=== PATIENT | female | born 1985 ===

== ENCOUNTER 2017-01-18 12:39 | Observation (INO) | payer OTHER, MEDICAID ==
[2017-01-18] MEDS ORDERED: Sodium Chloride 0.9% 1,000 ML IV STA (13:46)
--- NOTE | 2017-01-18 14:21 | ED PDOC ---
HPI: General Adult Time Seen by Provider: 01/18/17 13:21 Chief Complaint (Nursing): Abdominal Pain Chief Complaint (Provider): abdominal pain History Per: Patient History/Exam Limitations: no limitations Additional Complaint(s): 31yo female comes to the ED complaining of abdominal pain, nausea, back pain ongoing since the weekend (2-3 days). She saw her PMD over the weekend & was told she had a UTI. She was given Flagyl and Cipro 500. Initially urine was cloudy but now it has normalized. Currently has mid abdominal pain radiating to the back with nausea and fever. Past Medical History Reviewed: Historical Data, Nursing Documentation, Vital Signs Vital Signs: Last Vital Signs Temp 97.9 F 01/18/17 18:51 Pulse 77 01/18/17 18:51 Resp 18 01/18/17 18:51 BP 132/71 01/18/17 18:51 Pulse Ox 98 01/18/17 18:51 - Medical History PMH: No Chronic Diseases - Surgical History Surgical History: Appendectomy - Family History Family History: States: Unknown Family Hx - Social History Drugs: Denies - Home Medications Home Medications: Ambulatory Orders Medication Instructions Recorded Naproxen [Naprosyn] 500 mg PO Q12H #20 tab 10/25/14 - Allergies Allergies/Adverse Reactions: Allergies Allergy/AdvReac Type Severity Reaction Status Date / Time No Known Allergies Allergy Verified 10/22/14 12:20 Review of Systems ROS Statement: Except As Marked, All Systems Reviewed And Found Negative Constitutional: Positive for: Fever Gastrointestinal: Positive for: Nausea, Vomiting, Abdominal Pain. Negative for : Diarrhea Genitourinary Female: Positive for: Dysuria Physical Exam - Reviewed Nursing Documentation Reviewed: Yes Vital Signs Reviewed: Yes - Physical Exam Appears: Positive for: Well, Non-toxic, No Acute Distress Head Exam: Positive for: ATRAUMATIC, NORMAL INSPECTION, NORMOCEPHALIC Skin: Positive for: Warm, Dry Eye Exam: Positive for: EOMI, PERRL ENT: Positive for: Normal ENT Inspection Cardiovascular/Chest: Positive for: Regular Rate, Rhythm Respiratory: Positive for: Normal Breath Sounds. Negative for: Rales, Rhonchi, Wheezing Gastrointestinal/Abdominal: Positive for: Soft, Tenderness (mild mid abdominal, suprapubic). Negative for: Guarding, Rebound Back: Negative for: L CVA Tenderness, R CVA Tenderness Extremity: Positive for: Normal ROM - Laboratory Results Result Diagrams: 01/18/17 14:00 01/18/17 14:00 - ECG O2 Sat by Pulse Oximetry: 100 (RA) Pulse Ox Interpretation: Normal Medical Decision Making Medical Decision Makin Found to be febrile in the ED. Sepsis workup initiated for discovery of source. Tylenol, IV fluids initiated. 1400: CXR impression: suspect mild left basilar atelectasis. Labs reviewed. lactate 1.0 WBC 11.9 UA +TR leuk LFT mild elev AST Preg normal CT abd pelv obtained: Accession No. : [id number] Patient Name / ID : XESTER HAYDEN / [id number] Exam Date : 01/18/2017 18:15:25 ( Approved ) Study Comment : Sex / Age : F / 31Y Creator : Lei Murillo Dictator : Lei Murillo Fine Arts Chair : Founder And Chief Technical Officer : Lei Murillo Approver2 : Report Date : 01/18/2017 18:57:55 My Comment : This report is currently processing and HAS NOT BEEN OFFICIALLY SIGNED BY THE PHYSICIAN - ESTIMATED TIME OF APPROVAL IS 01/18/2017 19:03. PROCEDURE: CT Abdomen and Pelvis with contrast HISTORY: abdominal pain fever hx appendectomy COMPARISON: Comparison is made to the previous ultrasound of the abdomen dated 12/18/2013 and ultrasound of the pelvis dated 10/22/2014 TECHNIQUE: Contrast dose: He 90 mL Omnipaque 300. Axial and reformatted coronal and sagittal CT images of the abdomen were obtained after IV and oral contrast administration. Radiation dose: Total exam DLP = 709.08 mGy-cm. This CT exam was performed using one or more of the following dose reduction techniques: Automated exposure control, adjustment of the mA and/or kV according to patient size, and/or use of iterative reconstruction technique. FINDINGS: LOWER THORAX: Unremarkable. LIVER: Unremarkable. No gross lesion or ductal dilatation. GALLBLADDER AND BILE DUCTS: Distended gallbladder without CT evidence of acute cholecystitis. PANCREAS: Unremarkable. No gross lesion or ductal dilatation. SPLEEN: Unremarkable. ADRENALS: Unremarkable. No mass. KIDNEYS AND URETERS: Focal heterogeneous decreased enhancement seen at the left kidney upper pole may represent pyelonephritis. There is 5 millimeter nonobstructing calculus at the upper pole of the left kidney. No evidence of hydronephrosis. VASCULATURE: Unremarkable. No aortic aneurysm. BOWEL: Unremarkable. No obstruction. No gross mural thickening. APPENDIX: The appendix is not visualized consistent with the patient's history of prior appendectomy. PERITONEUM: Unremarkable. No free fluid. No free air. LYMPH NODES: Unremarkable. No enlarged lymph nodes. BLADDER: The urinary bladder is not distended therefore cannot be evaluated P REPRODUCTIVE: Uterus is slightly prominent in size. IUD is seen in place. Trace fluid seen in the pelvis. BONES: No acute fracture. OTHER FINDINGS: None. IMPRESSION: Ocal decreased enhancement of the renal cortex seen at the upper pole of the left kidney suspicious for pyelonephritis. Please correlate clinically. 5 millimeter nonobstructing calculus at the upper pole of the left kidney. No evidence of hydronephrosis. Distended gallbladder without evidence of cholecystitis. Given patient already on PO cipro and spiking fevers through oral cipro as outpatient, hospitalize Obs for IV Abx and cultures. Hospitalist paged for admission. ED OBSERVATION Date of observation admission: 01/18/17 Time of observation admission: 14:57 - Observation admission statement Patient is being placed in observation because:: sepsis workup - Goals of Observation Goals of observation are:: discovery of source of infection, IVF - Progress Note Progress Note: 01/18/17 14:50 resting comfortably 01/18/17 16:35 vitals remain stable. Pending CT abd pelv w oral and IV contrast r/o pyelonephritis vs cholecystitis (less likely w unremarkable LFTs and UA findings ) 01/18/17 19:01 CT results reviewed, pt to be admitted. Disposition - Clinical Impression Clinical Impression: Pyelonephritis - Patient ED Disposition Is Patient to be Admitted: Yes Counseled Patient/Family Regarding: Studies Performed, Diagnosis, Need For Followup - Disposition Disposition: Routine/Home Disposition Time: 14:57 Condition: STABLE - Pt Status Changed To: Hospital Disposition Of: Observation - POA Present On Arrival: None Additional Comments - Additional Comments Additional Comments: Scribe Attestation: Documented by Jorge L Cavazos acting as a scribe for Santhosh Connor DO. Provider Scribe Attestation: All medical record entries made by the Scribe were at my direction and personally dictated by me. I have reviewed the chart and agree that the record accurately reflects my personal performance of the history, physical exam, medical decision making, and the department course for this patient. I have also personally directed, reviewed, and agree with the discharge instructions and disposition.
[2017-01-18 14:22] LABS: VENOUS BLOOD GAS BASE EXCESS 2.7 mmol/L (0.0-2.0); VENOUS BLOOD GAS PCO2 36 mmHg (40-60); VENOUS BLOOD PH 7.47 (7.32-7.43)
[2017-01-18 14:27] LABS: BASO % 0.4 % (0.0-2.0); HEMATOCRIT 34.7 % (34.0-47.0); LYMPH # 1.3 K/uL (1.0-4.3); LYMPH % 10.5 % (20.0-40.0); MEAN CELL VOLUME 82.1 fl (81.0-99.0); MEAN CORPUSCULAR HEMOGLOBIN 27.1 pg (27.0-31.0); MEAN PLATELET VOLUME 10.6 fl (7.2-11.7); MONO # 1.1 K/uL (0.0-0.8); MONO % 9.6 % (0.0-10.0); NEUT # 9.4 K/uL (1.8-7.0); NEUT % 79.5 % (50.0-75.0); RED CELL DISTRIBUTION WIDTH 17.5 % (11.5-14.5); WHITE BLOOD COUNT 11.9 K/uL (4.8-10.8)
--- NOTE | 2017-01-18 14:28 | RAD ---
HISTORY: fever COMPARISON: No prior. FINDINGS: LUNGS: Suspect minor left basilar atelectasis PLEURA: No significant pleural effusion identified, no pneumothorax apparent. CARDIOVASCULAR: Normal. OSSEOUS STRUCTURES: No significant abnormalities. VISUALIZED UPPER ABDOMEN: Normal. OTHER FINDINGS: None. IMPRESSION: Suspect minor left basilar atelectasis
[2017-01-18 14:41] LABS: ALKALINE PHOSPHATASE 67 U/L (38-126); ALT/SGPT 38 U/L (9-52); AST/SGOT 42 U/L (14-36); BILIRUBIN,TOTAL 0.5 mg/dl (0.2-1.3); BLOOD UREA NITROGEN 9 mg/dl (7-17); CALCIUM 8.5 mg/dL (8.4-10.2); CARBON DIOXIDE 24 mmol/L (22-30); CHLORIDE 102 mmol/L (98-107); GFR AFRICAN-AMERICAN > 60; GLUCOSE,RANDOM 91 mg/dL (65-105); POTASSIUM 3.6 MMOL/L (3.6-5.0); SODIUM 137 mmol/l (132-148); TOTAL PROTEIN 7.5 G/DL (6.3-8.2)
[2017-01-18] MEDS ORDERED: Iohexol 240 (50 ml) PO ONE (14:45)
[2017-01-18 14:47] LABS: PARTIAL THROMBOPLASTIN TIME 29.2 SECONDS (23.3-32.5)
[2017-01-18 15:10] LABS: RBC URINE 20 /hpf (0-3); URINE BACTERIA RARE (<OCC); URINE BILIRUBIN NEGATIVE (NEGATIVE); URINE BLOOD SMALL (NEGATIVE); URINE COLOR YELLOW (YELLOW); URINE GLUCOSE (UA) NEG (Normal); URINE KETONE 80 mg/dL (NEGATIVE); URINE LEUKOCYTE ESTERASE TRACE Leu/uL (Negative); URINE PROTEIN 30 mg/dL (NEGATIVE); URINE UROBILINOGEN 0.2-1.0 mg/dL (0.2-1.0); WBC URINE 4 /hpf (0-5)
[2017-01-18] MEDS ORDERED: Iohexol 240 (50 ml) ONE (15:17)
[2017-01-18] MEDS ORDERED: Sodium Chloride 0.9% 50 ML IV ONE (18:06)
[2017-01-18] MEDS ORDERED: Iohexol 300 100 ML IJ ONE (18:06)
--- NOTE | 2017-01-18 18:59 | CT ---
PROCEDURE: CT Abdomen and Pelvis with contrast HISTORY: abdominal pain fever hx appendectomy COMPARISON: Comparison is made to the previous ultrasound of the abdomen dated 12/18/2013 and ultrasound of the pelvis dated 10/22/2014 TECHNIQUE: Contrast dose: He 90 mL Omnipaque 300. Axial and reformatted coronal and sagittal CT images of the abdomen were obtained after IV and oral contrast administration. Radiation dose: Total exam DLP = 709.08 mGy-cm. This CT exam was performed using one or more of the following dose reduction techniques: Automated exposure control, adjustment of the mA and/or kV according to patient size, and/or use of iterative reconstruction technique. FINDINGS: LOWER THORAX: Unremarkable. LIVER: Unremarkable. No gross lesion or ductal dilatation. GALLBLADDER AND BILE DUCTS: Distended gallbladder without CT evidence of acute cholecystitis. PANCREAS: Unremarkable. No gross lesion or ductal dilatation. SPLEEN: Unremarkable. ADRENALS: Unremarkable. No mass. KIDNEYS AND URETERS: Focal heterogeneous decreased enhancement seen at the left kidney upper pole may represent pyelonephritis. There is 5 millimeter nonobstructing calculus at the upper pole of the left kidney. No evidence of hydronephrosis. VASCULATURE: Unremarkable. No aortic aneurysm. BOWEL: Unremarkable. No obstruction. No gross mural thickening. APPENDIX: The appendix is not visualized consistent with the patient's history of prior appendectomy. PERITONEUM: Unremarkable. No free fluid. No free air. LYMPH NODES: Unremarkable. No enlarged lymph nodes. BLADDER: The urinary bladder is not distended therefore cannot be evaluated P REPRODUCTIVE: Uterus is slightly prominent in size. IUD is seen in place. Trace fluid seen in the pelvis. BONES: No acute fracture. OTHER FINDINGS: None. IMPRESSION: Ocal decreased enhancement of the renal cortex seen at the upper pole of the left kidney suspicious for pyelonephritis. Please correlate clinically. 5 millimeter nonobstructing calculus at the upper pole of the left kidney. No evidence of hydronephrosis. Distended gallbladder without evidence of cholecystitis.
[2017-01-18] MEDS ORDERED: Sodium Chloride 0.9% 1,000 ML IV SCH (19:45)
--- NOTE | 2017-01-18 19:50 | CP.PCM.HP ---
History of Present Illness - History of Present Illness History of Present Illness: 31 yo female with no significant PMH came in complaining of abdominal pain, back pain and fever since 2 days ago. Saw a physician who diagnosed her with UTI and was given Cipro and Flagyl. After 2 days of the antibiotics her condition has not improved so she decided to seek emergency consultation. Present on Admission - Present on Admission Any Indicators Present on Admission: No History of DVT/PE: No History of Uncontrolled Diabetes: No Urinary Catheter: No Decubitus Ulcer Present: No Review of Systems - Review of Systems All systems: reviewed and no additional remarkable complaints except (aside from those mentioned above, 12 point system review were negative by me) Past Patient History - Past Social History Smoking Status: Never Smoked Chewing Tobacco Use: No Cigar Use: No Alcohol: None Drugs: Denies - PSYCHIATRIC Hx Substance Use: No - SURGICAL HISTORY Hx Appendectomy: Yes - ANESTHESIA Hx Anesthesia: Yes Hx Anesthesia Reactions: No Meds Allergies/Adverse Reactions: Allergies Allergy/AdvReac Type Severity Reaction Status Date / Time No Known Allergies Allergy Verified 10/22/14 12:20 Physical Exam - Constitutional Appears: No Acute Distress - Head Exam Head Exam: NORMAL INSPECTION - Eye Exam Eye Exam: absent: Scleral icterus - ENT Exam ENT Exam: Mucous Membranes Moist - Neck Exam Neck exam: Negative for: Meningismus - Respiratory Exam Respiratory Exam: Clear to Auscultation Bilateral, NORMAL BREATHING PATTERN - Cardiovascular Exam Cardiovascular Exam: REGULAR RHYTHM, +S1, +S2 - GI/Abdominal Exam GI & Abdominal Exam: Soft, Tenderness (tenderness on RUQ) - Rectal Exam Rectal Exam: Deferred - Extremities Exam Extremities exam: Negative for: calf tenderness, pedal edema - Back Exam Back exam: absent: tenderness - Neurological Exam Neurological exam: Alert, Oriented x3 - Psychiatric Exam Psychiatric exam: Normal Affect - Skin Skin Exam: Dry, Intact Results - Vital Signs Recent Vital Signs: Last Vital Signs Temp 97.9 F 01/18/17 18:51 Pulse 77 01/18/17 18:51 Resp 18 01/18/17 18:51 BP 132/71 01/18/17 18:51 Pulse Ox 100 01/18/17 19:05 - Labs Result Diagrams: 01/18/17 14:00 01/18/17 14:00 Assessment & Plan (1) Pyelonephritis Status: Acute Comment: place on observation in med/surg. blood culture and urine culture. IV hydration NSS 100cc/hr. Rocephin 1gm IV daily
[2017-01-18] MEDS ORDERED: cefTRIAXone (Rocephin) 1 gm Inj ONE (19:56)
[2017-01-18 23:32] VITALS: RESP 18
[2017-01-19 07:00] LABS: BASO # 0.1 K/uL (0.0-0.2); BASO % 0.6 % (0.0-2.0); EOS # 0.2 K/uL (0.0-0.7); EOS % 1.9 % (0.0-4.0); HEMATOCRIT 31.3 % (34.0-47.0); LYMPH # 2.2 K/uL (1.0-4.3); LYMPH % 22.9 % (20.0-40.0); MEAN CELL VOLUME 82.2 fl (81.0-99.0); MEAN CORPUSCULAR HEMOGLOBIN 27.3 pg (27.0-31.0); MEAN CORPUSCULAR HGB CONC 33.2 g/dL (33.0-37.0); MEAN PLATELET VOLUME 10.3 fl (7.2-11.7); MONO # 1.4 K/uL (0.0-0.8); MONO % 14.9 % (0.0-10.0); NEUT # 5.7 K/uL (1.8-7.0); NEUT % 59.7 % (50.0-75.0); RED CELL DISTRIBUTION WIDTH 17.3 % (11.5-14.5); WHITE BLOOD COUNT 9.6 K/uL (4.8-10.8)
[2017-01-19 07:20] LABS: BLOOD UREA NITROGEN 8 mg/dl (7-17); CALCIUM 7.7 mg/dL (8.4-10.2); CARBON DIOXIDE 24 mmol/L (22-30); CHLORIDE 104 mmol/L (98-107); GFR AFRICAN-AMERICAN > 60; GLUCOSE,RANDOM 89 mg/dL (65-105); POTASSIUM 3.8 MMOL/L (3.6-5.0); SODIUM 136 mmol/l (132-148)
[2017-01-19 08:34] VITALS: BP 95/61; PULSE 68; TEMP 98.2; O2SAT 97
[2017-01-19] MEDS ORDERED: Enoxaparin 40 mg Syringe SC SCH (09:00)
[2017-01-19] MEDS ORDERED: Pantoprazole 40 mg EC Tab PO SCH (09:00)
--- NOTE | 2017-01-19 13:48 | CP.PCM.DIS ---
Provider - Provider Date of Admission: 01/18/17 14:57 Attending physician: Blair Stover MD Time Spent in preparation of Discharge (in minutes): 30 Diagnosis - Discharge Diagnosis (1) Pyelonephritis Status: Acute Comment: felt better. received 2 doses of IV 1gm of Rocephin. Bactrim DS PO BID x 10 days. Bacid BID for 10 days Hospital Course - Lab Results Lab Results: Most Recent Lab Values WBC 9.6 K/uL (4.8-10.8) 01/19/17 06:30 RBC 3.81 Mil/uL (3.80-5.20) 01/19/17 06:30 Hgb 10.4 g/dL (12.0-16.0) L 01/19/17 06:30 Hct 31.3 % (34.0-47.0) L 01/19/17 06:30 MCV 82.2 fl (81.0-99.0) 01/19/17 06:30 MCH 27.3 pg (27.0-31.0) 01/19/17 06:30 MCHC 33.2 g/dL (33.0-37.0) 01/19/17 06:30 RDW 17.3 % (11.5-14.5) H 01/19/17 06:30 Plt Count 220 K/uL (130-400) 01/19/17 06:30 MPV 10.3 fl (7.2-11.7) 01/19/17 06:30 Neut % (Auto) 59.7 % (50.0-75.0) 01/19/17 06:30 Lymph % (Auto) 22.9 % (20.0-40.0) 01/19/17 06:30 [place] % (Auto) 14.9 % (0.0-10.0) H 01/19/17 06:30 Eos % (Auto) 1.9 % (0.0-4.0) 01/19/17 06:30 Baso % (Auto) 0.6 % (0.0-2.0) 01/19/17 06:30 Neut # 5.7 K/uL (1.8-7.0) 01/19/17 06:30 Lymph # 2.2 K/uL (1.0-4.3) 01/19/17 06:30 [place] # 1.4 K/uL (0.0-0.8) H 01/19/17 06:30 Eos # 0.2 K/uL (0.0-0.7) 01/19/17 06:30 Baso # 0.1 K/uL (0.0-0.2) 01/19/17 06:30 PT 11.4 SECONDS (9.6-11.2) H 01/18/17 14:00 INR 1.10 (0.92-1.08) H 01/18/17 14:00 APTT 29.2 SECONDS (23.3-32.5) 01/18/17 14:00 pO2 28 mm/Hg (30-55) L 01/18/17 14:19 VBG pH 7.47 (7.32-7.43) H 01/18/17 14:19 VBG pCO2 36 mmHg (40-60) L 01/18/17 14:19 VBG HCO3 26.0 mmol/L 01/18/17 14:19 VBG Total CO2 27.3 mmol/L (22-28) 01/18/17 14:19 VBG O2 Sat (Calc) 64.3 % (40-65) 01/18/17 14:19 VBG Base Excess 2.7 mmol/L (0.0-2.0) H 01/18/17 14:19 VBG Potassium 3.5 mmol/L (3.6-5.2) L 01/18/17 14:19 A-a O2 Difference 77.0 mm/Hg 01/18/17 14:19 Sodium 136.0 mmol/L (132-148) 01/18/17 14:19 Chloride 104.0 mmol/L (98-107) 01/18/17 14:19 Glucose 88 mg/dL (65-105) 01/18/17 14:19 Lactate 1.0 mmol/L (0.7-2.1) 01/18/17 14:19 FiO2 21.0 % 01/18/17 14:19 Crit Value Called To Dr blank wilkerson 01/18/17 14:19 Crit Value Called By 15 01/18/17 14:19 Crit Value Read Back Y 01/18/17 14:19 Blood Gas Notified Time 1422 01/18/17 14:19 Sodium 136 mmol/l (132-148) 01/19/17 06:30 Potassium 3.8 MMOL/L (3.6-5.0) 01/19/17 06:30 Chloride 104 mmol/L (98-107) 01/19/17 06:30 Carbon Dioxide 24 mmol/L (22-30) 01/19/17 06:30 Anion Gap 11 (10-20) 01/19/17 06:30 BUN 8 mg/dl (7-17) 01/19/17 06:30 Creatinine 0.6 mg/dL (0.7-1.2) L 01/19/17 06:30 Est GFR ( Amer) > 60 01/19/17 06:30 Est GFR (Non-Af Amer) > 60 01/19/17 06:30 Random Glucose 89 mg/dL (65-105) 01/19/17 06:30 Calcium 7.7 mg/dL (8.4-10.2) L 01/19/17 06:30 Total Bilirubin 0.5 mg/dl (0.2-1.3) 01/18/17 14:00 AST 42 U/L (14-36) H 01/18/17 14:00 ALT 38 U/L (9-52) 01/18/17 14:00 Alkaline Phosphatase 67 U/L (38-126) 01/18/17 14:00 Total Protein 7.5 G/DL (6.3-8.2) 01/18/17 14:00 Albumin 3.8 g/dL (3.5-5.0) 01/18/17 14:00 Globulin 3.7 gm/dL (2.2-3.9) 01/18/17 14:00 Albumin/Globulin Ratio 1.0 (1.0-2.1) 01/18/17 14:00 Venous Blood Potassium 3.5 mmol/L (3.6-5.2) L 01/18/17 14:19 Urine Color Yellow (YELLOW) 01/18/17 14:45 Urine Clarity Clear (Clear) 01/18/17 14:45 Urine pH 6.0 (5.0-8.0) 01/18/17 14:45 Ur Specific [place] 1.017 (1.003-1.030) 01/18/17 14:45 Urine Protein 30 mg/dL (NEGATIVE) 01/18/17 14:45 Urine Glucose (UA) Neg mg/dL (Normal) 01/18/17 14:45 Urine Ketones 80 mg/dL (NEGATIVE) 01/18/17 14:45 Urine Blood Small (NEGATIVE) 01/18/17 14:45 Urine Nitrate Negative (NEGATIVE) 01/18/17 14:45 Urine Bilirubin Negative (NEGATIVE) 01/18/17 14:45 Urine Urobilinogen 0.2-1.0 mg/dL (0.2-1.0) 01/18/17 14:45 Ur Leukocyte Esterase Trace [place]/uL (Negative) 01/18/17 14:45 Urine RBC (Auto) 20 /hpf (0-3) H 01/18/17 14:45 Urine Microscopic WBC 4 /hpf (0-5) 01/18/17 14:45 Ur Squamous Epith Cells 3 /hpf (0-5) 01/18/17 14:45 Urine Bacteria Rare (<OCC) 01/18/17 14:45 - Hospital Course Hospital Course: 31 yo female with no significant PMH came in complaining of abdominal pain, back pain and fever since 2 days ago. Saw a physician who diagnosed her with UTI and was given Cipro and Flagyl. After 2 days of the antibiotics her condition has not improved. CT scan showed pyelonephritis of the left kidney. She received 1gm of Rocephin in the ER and 1gm in the floor this morning. Pt felt better although still a little sore on the back. Abdominal pain was fully relieved. Discharge Exam - Head Exam Head Exam: NORMAL INSPECTION - Eye Exam Eye Exam: absent: Scleral icterus - ENT Exam ENT Exam: Mucous Membranes Moist - Respiratory Exam Respiratory Exam: NORMAL BREATHING PATTERN. absent: Wheezes, Respiratory Distress - Cardiovascular Exam Cardiovascular Exam: REGULAR RHYTHM, +S1, +S2 - GI/Abdominal Exam GI & Abdominal Exam: Soft. absent: Tenderness - Rectal Exam Rectal Exam: Deferred - Neurological Exam Neurological exam: Alert, Oriented x3 - Psychiatric Exam Psychiatric exam: Normal Affect - Skin Skin Exam: Dry, Intact Discharge Plan - Discharge Medications Prescriptions: Lactobacillus Acidophilus [Bacid Acidophilus] 1 cap PO BID #20 cap Sulfamethoxazole/Trimethoprim [Bactrim DS 800 mg-160 mg] 1 tab PO BID #20 tab - Follow Up Plan Condition: STABLE Disposition: HOME/ ROUTINE
== END 2017-01-19 15:00 | disposition home or self-care (01) ==
LOC: H.ER 12:39 → H.EROBSV 14:57 → H.ERHOLD 21:06 → H.MEDSURG1 22:16
DX: N12 Tubulo-interstitial nephritis, not specified as acute or chronic (principal); K82.8 Other specified diseases of gallbladder